=== PATIENT | female | born 1940 | race Caucasian/White ===

== ENCOUNTER → 2016-07-25 | Outpatient (CLI) | payer OTHER, BC | END | disposition home or self-care (01) | LOC: RAD 08:15 | DX: R18.8 Other ascites (principal); K74.60 Unspecified cirrhosis of liver; Z53.8 Procedure and treatment not carried out for other reasons | CPT/HCPCS: 76705 ==

== ENCOUNTER → 2016-07-31 | Outpatient (CLI) | payer OTHER, BC | END | disposition home or self-care (01) | LOC: RAD 09:00 | DX: K74.60 Unspecified cirrhosis of liver (principal); N28.1 Cyst of kidney, acquired | CPT/HCPCS: 76705 ==